=== PATIENT | male | born 1970 | race Caucasian/White ===

== ENCOUNTER 2016-10-01 07:49 | Day surgery (SDC) | payer BC ==
--- NOTE | 2016-09-24 07:25 | HP ---
PREOPERATIVE HISTORY AND PHYSICAL: DATE OF OFFICE VISIT/ENCOUNTER: 09/23/16 DATE OF SURGERY/ADMISSION: 10/01/16 [facility] ATTENDING SURGEON: Radha Mcfarland MD PROCEDURE: Right wrist carpal tunnel release. CHIEF COMPLAINT: Numbness and tingling, bilateral hands. HISTORY OF PRESENT ILLNESS: This is a 46-year-old male who complains of numbness and tingling in his bilateral hands. He feels the right is worse than the left. He has had these symptoms for quite sometime, but recently it has become more constant where he has tingling in his fingers all of the time. It bothers him when he sleeps at night, but he does wear braces which help to a certain extent. It also bothers him during the day during certain activities especially when he drives. He has minimal pain, but constant numbness. He has recently had a nerve conduction study, which shows bilateral severe carpal tunnel syndrome. He is interested in pursuing definitive treatment for this problem and has consented to proceed with a right wrist carpal tunnel release. He will likely undergo a left wrist carpal tunnel release in the near future. The patient is right-handed. PAST MEDICAL HISTORY: 1. Depression. 2. Gout. 3. Hypertension. PAST SURGICAL HISTORY: None. CURRENT MEDICATIONS: 1. Allopurinol. 2. Amlodipine besylate/benazepril HCl. 3. Aspirin EC low dose. 4. Bupropion HCl ER. 5. Lisinopril. ALLERGIES: No known drug allergies. FAMILY MEDICAL HISTORY: Significant for hypertension and gout. SOCIAL HISTORY: The patient is employed at [employer] in [employer]. He denies tobacco use and recreational drug use. He does drink alcohol and reports consuming approximately 6 packs per week. REVIEW OF SYSTEMS: General: Negative for fevers, chills, or night sweats. No known anesthesia problems. HEENT: Negative for headache, lightheadedness, or syncopal episodes. Integumentary: Negative for abrasions, lesions, or open wounds. Cardiothoracic: Positive for hypertension. Negative for chest pain, palpitations, or edema. Pulmonary: Negative for shortness of breath with exertion, chronic cough, or COPD. GI: Negative for nausea, vomiting, diarrhea , constipation, or GERD. : Negative for nocturia, urinary frequency, urgency , history of UTIs, or kidney problems. Musculoskeletal: Positive for current complaint. Negative for chronic or intermittent back pain or history of fractures. Neurological: Negative for history of seizure, stroke, or epilepsy. Positive for depression. Endocrine: Negative for diabetes or thyroid issues. Hematologic: Negative for easy bruising, anemia, excessive bleeding, or history of DVT. Infectious Disease: Negative for history of MRSA, hepatitis C, or HIV. PHYSICAL EXAMINATION GENERAL: Well-developed, well-nourished 46-year-old male, in no acute distress. VITAL SIGNS: Height 5 feet 8 inches, weight 240 pounds, pulse rate 76, blood pressure 122/78. HEENT: Normocephalic, atraumatic. Pupils are equal, round, and reactive to light and accommodation. Extraocular movements are intact. NECK: Supple. No palpable lymph nodes. Throat is clear. PULMONARY: Lungs are clear to auscultation bilaterally. No wheezes, rales, or rhonchi. CARDIOTHORACIC: Regular rate and rhythm. S1, S2. No murmurs, rubs, or gallops. No edema. ABDOMEN: Positive bowel sounds, soft, nontender. MUSCULOSKELETAL: On exam of bilateral hands, he has a negative Tinel sign at the carpal tunnel. Negative Phalen's test. He has decreased sensation at the tips of his finger in the median nerve distribution. Intact sensation in the ulnar nerve distribution. He has full range of motion of his fingers, wrists, and thumbs. He has a little bit of weakness with thumb abduction, worse on the right than the left. NEUROLOGICAL: Alert and oriented x3. Cranial nerves II through XII are intact. He has decreased sensation at the tips of his fingers bilaterally at the median nerve distribution. STUDIES: EMG nerve conduction shows bilateral severe carpal tunnel syndrome. IMPRESSION: Bilateral carpal tunnel syndrome, symptomatically worse on the right than the left. PLAN: The patient is scheduled to undergo a right wrist carpal tunnel release with Dr. Mcfarland on 10/01/16. He will return to the office in 10 to 14 days postop for followup and suture removal. A prescription for Tylenol No. 3 was e- scribed to the patient's pharmacy for postoperative pain management. VARGHESE FRANCIS [id number]/[facility] #: [id number] MTDD
[~2016-10-01 07:49] MED LIST: Buffered Lidocaine 1% SYR 3ML* 3 ML/SYR SYRINGE INTRADERM ONE; Lidocaine 1% INJ* 10 MG/ML 30 ML SDV ONE
[2016-10-01] MEDS ORDERED: Midazolam* 1 MG/ML 2 ML VIAL (2 MG) ONE (08:02)
[2016-10-01] MEDS ORDERED: fentaNYL* 50 MCG/ML 2 ML VIAL (100 MCG VIAL) ONE (08:02)
[2016-10-01] MEDS ORDERED: Propofol* 10 MG/ML 20 ML BTL IV PUSH ONE (08:02)
[2016-10-01 09:30] VITALS: BP 127/77
--- NOTE | 2016-10-01 12:08 | OP ---
DATE OF OPERATION: 10/01/16 [facility] DATE OF : 72 SURGEON: Radha Mcfarland MD. LACE STRIPPER: VARGHESE Downing. ANESTHESIOLOGIST: Junior Romero MD ANESTHESIA: Local MAC. PRE-OP DIAGNOSIS: Right carpal tunnel syndrome. POST-OP DIAGNOSIS: Right carpal tunnel syndrome. OPERATIVE PROCEDURE: Right carpal tunnel release. INDICATIONS: Brett is a 46-year-old male with with numbness and tingling in the median nerve distribution of his right hand, he presents for right carpal tunnel release. ESTIMATED BLOOD LOSS: Zero. TOURNIQUET TIME: About 8 minutes. DESCRIPTION OF PROCEDURE: The patient was brought to the operating room and was given a sedation anesthetic and a local infiltration of 10 cc of 1% plain lidocaine. The skin of his right hand and forearm was prepped and draped in the usual sterile fashion. The hand and forearm were exsanguinated and the tourniquet elevated to 250 mmHg. A longitudinal incision was made in the palm in line with the ring finger. We dissected through the subcutaneous tissue down to the transverse carpal ligament. The ligament was divided sharply with a knife and then more proximally with the scissors. The nerve was dissected free from the surrounding tissue and there was an area of significant compression at the proximal portion of the ligament. The wound was irrigated and the skin edges reapproximated with 4-0 nylon suture. The wound was dressed with Xeroform , 4x4, Webril, and an Juan Pablo wrap. The patient tolerated the procedure well and was brought to the recovery room in good condition. [id number]/[facility] #: [id number] [facility]ITAL[facility]
== END 2016-10-01 09:41 | disposition home or self-care (01) ==
LOC: OREAST 07:49
PROVIDERS: ATTEND Orthopaedic Surgery
DX: G56.01 Carpal tunnel syndrome, right upper limb (principal); G47.33 Obstructive sleep apnea (adult) (pediatric); I10 Essential (primary) hypertension
CPT/HCPCS: J2250; J2704; J3010

== ENCOUNTER → 2016-10-22 08:27 | Day surgery (SDC) | payer BC ==
[~2016-10-22 08:27] MED LIST changes: +Acetaminophen TAB* 325 MG PO PRN; -Buffered Lidocaine 1% SYR 3ML* 3 ML/SYR SYRINGE INTRADERM ONE; +Buffered Lidocaine 1% SYRIN* 3 ML/SYR SYRINGE INTRADERM ONE; +Ketorolac INJ* 30 MG/ML 1 ML VIAL ONE; +Lidocaine 2% PF* 5 ML VIAL ONE; +Midazolam* 1 MG/ML 2 ML VIAL (2 MG) ONE; +Propofol* 10 MG/ML 20 ML BTL IV PUSH ONE; +fentaNYL* 50 MCG/ML 2 ML VIAL (100 MCG VIAL) ONE
[2016-10-22 09:53] VITALS: BP 112/69
--- NOTE | 2016-10-22 23:32 | OP ---
DATE OF OPERATION: 10/22/16 [facility] DATE OF : 72 SURGEON: Dr. Mcfarland. INVESTIGATIVE SHOPPER: VARGHESE Downing ANESTHESIOLOGIST: Dr. Rodriguez ANESTHESIA: Local MAC. PRE-OP DIAGNOSIS: Left carpal tunnel syndrome. POST-OP DIAGNOSIS: Left carpal tunnel syndrome. OPERATIVE PROCEDURE: Left carpal tunnel release. ESTIMATED BLOOD LOSS: Zero. TOURNIQUET TIME: 5 minutes. INDICATIONS FOR PROCEDURE: Brett is a 46-year-old male with numbness and tingling in the median nerve distribution of his left hand. He presents for left carpal tunnel release. DESCRIPTION OF PROCEDURE: The patient was brought to the operating room, was given a sedation anesthetic, and a local infiltration of 10 cc of 1% plain lidocaine in the palm of his left hand. The skin of his left hand and forearm was prepped and dapped in the usual sterile fashion. The hand and forearm were exsanguinated and tourniquet elevated to 250 mmHg. A longitudinal incision was made in the palm in line with the ring finger. We dissected through the subcutaneous tissue down to the transverse carpal ligament. The ligament was divided sharply with a knife and then more proximally with the scissors. The nerve was dissected free from the surrounding tissue and there was an area of moderate compression at the mid portion of the ligament. The wound was irrigated and skin edges reapproximated with 4-0 nylon suture. The wound was dressed with Xeroform, 4x4, Webril, and an Juan Pablo wrap. The patient tolerated the procedure well and was brought to the recovery room in good condition. [id number]/[facility] #: [id number] [facility]ITAL[facility]
== END | disposition home or self-care (01) ==
LOC: OREAST 08:27
PROVIDERS: ATTEND Orthopaedic Surgery
DX: G56.02 Carpal tunnel syndrome, left upper limb (principal); I10 Essential (primary) hypertension; G47.33 Obstructive sleep apnea (adult) (pediatric)
CPT/HCPCS: J1885; J2001; J2250; J2704; J3010